=== PATIENT | female | born 1985 | race American Indian/Alaskan Native ===

== ENCOUNTER 2018-02-12 09:01 | Emergency (ER) | payer OTHER ==
[2018-02-12 09:06] VITALS: RESP 18
[2018-02-12] MEDS ORDERED: Sodium Chloride 0.9% 1,000 ML IV STA (09:48)
--- NOTE | 2018-02-12 10:08 | ED PDOC ---
HPI: General Adult Time Seen by Provider: 02/12/18 09:17 Chief Complaint (Nursing): Dizziness/Lightheaded Chief Complaint (Provider): Dizziness History Per: Patient History/Exam Limitations: no limitations Onset/Duration Of Symptoms: Days (x1) Current Symptoms Are (Timing): Still Present Additional Complaint(s): Aarti Dowling is a 32 year old female presenting for evaluation of dizziness, nausea, and vomiting onset this morning. Patient states she woke up feeling di zziness described as a room spinning sensation and nausea. Patient reports she sat down to take a shower due to her nausea and had 1 episode of vomiting. Patient denies any known alleviating or exacerbating factors at this time. Patient reports a history of anxiety, but states her current symptoms are different from her previous panic attacks. Patient otherwise denies any headache, visual changes, fevers, chills, chest pain, cough, acute shortness of breath, abdominal pain, diarrhea, constipation, frequency, dysuria, or hematuria. No numbness, tingles. Past Medical History Reviewed: Historical Data, Nursing Documentation, Vital Signs Vital Signs: Last Vital Signs Temp 98.1 F 02/12/18 09:05 Pulse 61 02/12/18 09:05 Resp 18 02/12/18 09:05 BP 115/69 02/12/18 09:05 Pulse Ox 100 02/12/18 09:05 - Medical History PMH: Anxiety, Asthma - Surgical History Surgical History: No Surg Hx - Family History Family History: States: Unknown Family Hx - Home Medications Home Medications: Ambulatory Orders Medication Instructions Recorded Meclizine [Meclizine*] 25 mg PO Q12 PRN #10 tab 02/12/18 - Allergies Allergies/Adverse Reactions: Allergies Allergy/AdvReac Type Severity Reaction Status Date / Time nickel Allergy ANAPHYLAXIS Verified 02/12/18 09:16 Review of Systems ROS Statement: Except As Marked, All Systems Reviewed And Found Negative Constitutional: Negative for: Fever, Chills Eyes: Negative for: Vision Change Cardiovascular: Negative for: Chest Pain, Palpitations, Light Headedness Respiratory: Negative for: Cough, Shortness of Breath Gastrointestinal: Positive for: Nausea, Vomiting. Negative for: Abdominal Pain, Diarrhea, Constipation Genitourinary Female: Negative for: Dysuria, Frequency, Incontinence, Hematuria Neurological: Positive for: Dizziness. Negative for: Weakness, Numbness, Headache Physical Exam - Reviewed Nursing Documentation Reviewed: Yes Vital Signs Reviewed: Yes - Physical Exam Appears: Positive for: Non-toxic, No Acute Distress Head Exam: Positive for: ATRAUMATIC, NORMAL INSPECTION, NORMOCEPHALIC Skin: Positive for: Normal Color, Warm, Dry. Negative for: Rash Eye Exam: Positive for: EOMI, Normal appearance, PERRL ENT: Positive for: Normal ENT Inspection Neck: Positive for: Normal, Painless ROM, Supple Cardiovascular/Chest: Positive for: Regular Rate, Rhythm. Negative for: Murmur Respiratory: Positive for: Normal Breath Sounds. Negative for: Respiratory Distress Gastrointestinal/Abdominal: Positive for: Normal Exam, Soft. Negative for: Tenderness Back: Positive for: Normal Inspection. Negative for: L CVA Tenderness, R CVA Tenderness, Vertebral Tenderness Extremity: Positive for: Normal ROM. 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 Negative for: Motor/Sensory Deficits - Laboratory Results Result Diagrams: 02/12/18 10:01 02/12/18 10:01 Interpretation Of Abn Labs: no acute - ECG ECG: Positive for: Interpreted By Me, Viewed By Me ECG Rhythm: Positive for: Normal QRS, Normal ST Segment, Sinus Rhythm O2 Sat by Pulse Oximetry: 100 Pulse Ox Interpretation: Normal - Progress ED Course And Treament: 1127: Stable. AAOx3. Pain free. Tolerated PO. Fu with pcp. No dizziness. Medical Decision Making Medical Decision Makin Plan: -EKG -BMP -Udip -CBC -Meclizine 25mg IV -1L NS IVB -Reevaluation Scribe Attestation: Documented by Juancho Rouse, acting as a scribe for Marcial Marino MD. Provider Scribe Attestation: All medical record entries made by the Scribe were at my direction and personally dictated by me. I have reviewed the chart and agree that the record accurately reflects my personal performance of the history, physical exam, medical decision making, and the department course for this patient. I have also personally directed, reviewed, and agree with the discharge instructions and disposition. Disposition - Clinical Impression Clinical Impression: Dizziness - Patient ED Disposition Is Patient to be Admitted: No Counseled Patient/Family Regarding: Studies Performed, Diagnosis, Need For Followup, Rx Given - Disposition Referrals: [facility] [Outside] - 02/15/18 Disposition: Routine/Home Disposition Time: 11:28 Condition: STABLE Additional Instructions: Return if not better in 3 days. Prescriptions: Meclizine [Meclizine*] 25 mg PO Q12 PRN #10 tab PRN Reason: Dizziness Instructions: Vertigo (a Type of Dizziness) Forms: [facility] ([place]olan), [facility] ED School/Work Excuse
[2018-02-12 10:12] LABS: BASO # 0.1 K/uL (0.0-0.2); BASO % 0.6 % (0.0-2.0); EOS # 0.1 K/uL (0.0-0.7); EOS % 0.6 % (0.0-4.0); HEMOGLOBIN 11.9 g/dL (12.0-16.0); LYMPH # 1.7 K/uL (1.0-4.3); MEAN CELL VOLUME 84.7 fl (81.0-99.0); MEAN CORPUSCULAR HEMOGLOBIN 26.9 pg (27.0-31.0); MEAN CORPUSCULAR HGB CONC 31.7 g/dL (33.0-37.0); MONO # 0.5 K/uL (0.0-0.8); MONO % 5.2 % (0.0-10.0); NEUT % 75.6 % (50.0-75.0); RBC 4.41 Mil/uL (3.80-5.20); WHITE BLOOD COUNT 9.3 K/uL (4.8-10.8)
[2018-02-12 10:26] LABS: BLOOD UREA NITROGEN 13 mg/dl (7-17); CALCIUM 8.9 mg/dL (8.4-10.2); GFR NON-AFRICAN AMERICAN > 60
[2018-02-12 11:43] VITALS: BP 105/66; PULSE 65; TEMP 97.7; O2SAT 99
--- NOTE | 2018-02-12 20:38 | CARD ---
APPROVED REPORT Date of service: 02/12/2018 EKG Measurement Heart [id number] [id number] <Conclusion> Sinus bradycardia Otherwise normal ECG
== END 2018-02-12 12:00 | disposition home or self-care (01) ==
LOC: H.ER 09:01
DX: R42 Dizziness and giddiness (principal); F41.9 Anxiety disorder, unspecified
CPT/HCPCS: 80048; 81025; 85025; 93005; 96360; 99284; J2765; J7030

== ENCOUNTER 2018-06-21 09:17 | Emergency (ER) | payer OTHER ==
[2018-06-21 09:31] VITALS: BMI 26.0
[2018-06-21 09:54] VITALS: RESP 20; O2SAT 98
--- NOTE | 2018-06-21 12:07 | ED PDOC ---
Lower Extremity Pain/Injury Time Seen by Provider: 06/21/18 10:25 Chief Complaint (Nursing): Lower Extremity Problem/Injury Chief Complaint (Provider): Lower Extremity Problem/Injury History Per: Patient History/Exam Limitations: no limitations Onset/Duration Of Symptoms: Days (x 3) Current Symptoms Are (Timing): Still Present Severity: Moderate Additional Complaint(s): 33 year old female with no significant medical history presents to the ED for evaluation of a right ankle injury that occurred three days ago. Patient reports she originally injured her ankle on Thursday and then again injured it yesterday by twisting it. She treated the injury by elevating, icing and taking Motrin. Patient is able to walk but is limping with pain. Denies other injury or complaints. PMD: none provided - Ankle/Foot Description Of Injury: Twisted Past Medical History Reviewed: Historical Data, Nursing Documentation, Vital Signs Vital Signs: Last Vital Signs Temp 98.2 F 06/21/18 09:31 Pulse 58 L 06/21/18 09:31 Resp 20 06/21/18 09:50 BP 124/79 06/21/18 09:31 Pulse Ox 98 06/21/18 09:50 - Medical History PMH: Anxiety, Asthma - Surgical History Surgical History: No Surg Hx - Family History Family History: States: Unknown Family Hx - Home Medications Home Medications: Ambulatory Orders Medication Instructions Recorded Meclizine [Meclizine*] 25 mg PO Q12 PRN #10 tab 02/12/18 Naproxen 500 mg PO BID #20 tab 06/21/18 - Allergies Allergies/Adverse Reactions: Allergies Allergy/AdvReac Type Severity Reaction Status Date / Time nickel Allergy ANAPHYLAXIS Verified 06/21/18 09:50 Review of Systems ROS Statement: Except As Marked, All Systems Reviewed And Found Negative Musculoskeletal: Positive for: Foot Pain (right ankle injury) Physical Exam - Reviewed Nursing Documentation Reviewed: Yes Vital Signs Reviewed: Yes - Physical Exam Appears: Positive for: No Acute Distress Skin: Positive for: Normal Color, Warm, Dry Eye Exam: Positive for: Normal appearance Extremity: Positive for: Tenderness (mild tenderness to medial malleolus; no swelling), Swelling (swelling and tenderness to the right lateral malleolus), Other (limited ROM at ankle). Negative for: Normal ROM Neurological/Psych: Positive for: Awake, Alert, Normal Tone, Oriented (x 3). Negative for: Motor/Sensory Deficits - ECG O2 Sat by Pulse Oximetry: 98 (RA) Pulse Ox Interpretation: Normal - Progress Re-evaluation Time: 13:39 Condition: Re-examined, Improved Medical Decision Making Medical Decision Makin:48 Impression: right ankle pain and injury Initial Plan: --Right ankle x-ray --Motrin 600 mg PO 11:45 Ordered Tramadol because pain persists. 12:53 X-ray FINDINGS: BONES: Bone alignment and mineralization are normal. There is no acute displaced fracture or bone destruction. A small well corticated ossific density posterior superior to the navicular is most compatible with an accessory ossifications center JOINTS: Normal. No osteoarthritis. Ankle mortise maintained. Talar dome intact SOFT TISSUES: There is mild lateral soft tissue swelling. OTHER FINDINGS: None. IMPRESSION: No acute fracture or dislocation. Mild lateral soft tissue swelling. Scribe Attestation: Documented by Amelia Davis, acting as a scribe for Mathew Chiu MD Provider Scribe Attestation: All medical record entries made by the Scribe were at my direction and personally dictated by me. I have reviewed the chart and agree that the record accurately reflects my personal performance of the history, physical exam, medical decision making, and the department course for this patient. I have also personally directed, reviewed, and agree with the discharge instructions and disposition Disposition - Clinical Impression Clinical Impression: Ankle injury - Patient ED Disposition Is Patient to be Admitted: No Doctor Will See Patient In The: Office Counseled Patient/Family Regarding: Studies Performed, Diagnosis, Need For Followup - Disposition Referrals: Podiatry Clinic [Outside] Disposition: Routine/Home Disposition Time: 13:39 Condition: GOOD Additional Instructions: TAY BELL, thank you for letting us take care of you today. Your provider was Mathew Chiu MD and you were treated for RT ANKLE INJURY. The emergency medical care you received today was directed at your acute symptoms. If you were prescribed any medication, please fill it and take as directed. It may take several days for your symptoms to resolve. Return to the Emergency Department if your symptoms worsen, do not improve, or if you have any other problems. Please contact your doctor or call one of the physicians/clinics you have been referred to that are listed on the Patient Visit Information form that is included in your discharge packet. Bring any paperwork you were given at discharge with you along with any medications you are taking to your follow up visit. Our treatment cannot replace ongoing medical care by a primary care provider outside of the emergency department. Thank you [facility] to be part of your care today. Prescriptions: Naproxen 500 mg PO BID #20 tab Instructions: Ankle Sprain Forms: [facility] ED School/Work Excuse
--- NOTE | 2018-06-21 12:57 | RAD ---
Date of service: 06/21/2018 PROCEDURE: Right Ankle Radiographs. HISTORY: right ankle pain injury COMPARISON: None available. TECHNIQUE: 3 views obtained. FINDINGS: BONES: Bone alignment and mineralization are normal. There is no acute displaced fracture or bone destruction. A small well corticated ossific density posterior superior to the navicular is most compatible with an accessory ossifications center JOINTS: Normal. No osteoarthritis. Ankle mortise maintained. Talar dome intact SOFT TISSUES: There is mild lateral soft tissue swelling. OTHER FINDINGS: None. IMPRESSION: No acute fracture or dislocation. Mild lateral soft tissue swelling.
[2018-06-21 14:00] VITALS: BP 120/70; PULSE 70; TEMP 98.6
== END 2018-06-21 14:00 | disposition home or self-care (01) ==
LOC: H.ER 09:17
DX: S99.911A Unspecified injury of right ankle, initial encounter (principal); X50.9XXA Other and unspecified overexertion or strenuous movements or postures, initial encounter; Y92.89 Other specified places as the place of occurrence of the external cause